=== PATIENT | male | born 1980 | race Caucasian/White ===

== ENCOUNTER 2018-09-12 14:31 | Outpatient (CLI) | payer OTHER ==
--- NOTE | 2018-09-12 15:41 | MRI ---
MRI LUMBAR SPINE: DATE: 09/12/2018. PROVIDED CLINICAL HISTORY: Low back pain. FINDINGS: Five lumbar vertebral bodies are seen. Lumbar alignment appears normal. Vertebral body heights appe ar preserved. No focal concerning regional marrow signal abnormality is evident. Hemangioma is seen in L3. The conus medullaris is normal in signal and terminates at an appropriate level. The visual ized extraspinal soft tissues appear unremarkable. At L1-2, there is no significant central canal or foraminal narrowing apparent. Schmorl's node forma tion involves the inferior end plate of L1. Mild bilateral facet arthritis. At L2-3, there is mild bilateral facet arthritis. There is no significant central canal or foraminal narrowing apparent. At L3-4, there is a right paracentral disk extrusion which effaces the right ventral lateral thecal s ac and produces a potential for mass effect upon the traversing right L4 nerve root. There is no sig nificant foraminal narrowing apparent. At L4-5, there is a central disk herniation. This is superimposed upon a broad-based disk bulge. Th ere is bilateral facet arthritis. There is no significant foraminal narrowing apparent. There is mi ld central canal stenosis. At L5-S1, there is Schmorl's node formation involving the superior end plate of S1. There is bilater al facet arthritis. There is no significant central canal or foraminal narrowing apparent. IMPRESSION: Multilevel lumbar disk and facet degenerative changes with disk herniations at L3-4 and L4-5 as descr ibed. POS: [facility]
== END 2018-09-12 14:32 | disposition home or self-care (01) ==
LOC: MRI 14:31
PROVIDERS: ATTEND Family Medicine
DX: R93.7 Abnormal findings on diagnostic imaging of other parts of musculoskeletal system (principal); M47.816 Spondylosis without myelopathy or radiculopathy, lumbar region; M51.26 Other intervertebral disc displacement, lumbar region
CPT/HCPCS: 72148